=== PATIENT | male | born 1995 | race African-American/Black ===

== ENCOUNTER 2020-05-02 11:35 | Emergency (ER) | payer OTHER ==
[~2020-05-02] VITALS: Ht 167.6 cm; Wt 79.2 kg
[2020-05-02] MEDS ORDERED: TYLENOL (11:42)
[2020-05-02 12:10] LABS: HEMATOCRIT 41.8 % (42.0-52.0); HEMOGLOBIN 14.4 g/dl (13.5-17.5); MEAN CORPUSCULAR HEMOGLOBIN 28.9 pg (27.0-33.0); MEAN CORPUSCULAR HGB CONC 34.4 g/dl (32.0-36.5); MEAN CORPUSCULAR VOLUME 83.9 fl (80.0-96.0); PLATELET COUNT, AUTOMATED 202 10^3/uL (150-450); RED BLOOD COUNT 4.98 10^6/uL (4.30-6.10); WHITE BLOOD COUNT 9.3 10^3/uL (4.0-10.0)
[2020-05-02 12:31] LABS: BLOOD UREA NITROGEN 10 MG/DL (7-18); C REACTIVE PROTEIN QUANTITATIV 0.44 MG/DL (0.00-0.30); CALCIUM LEVEL 9.2 MG/DL (8.5-10.1); CARBON DIOXIDE LEVEL 31 MEQ/L (21-32); CHLORIDE LEVEL 104 MEQ/L (98-107); CREATININE FOR GFR 1.07 MG/DL (0.70-1.30); GLOMERULAR FILTRATION RATE > 60.0 (>60); GLUCOSE, FASTING 82 MG/DL (70-100); POTASSIUM SERUM 3.9 MEQ/L (3.5-5.1); SODIUM LEVEL 138 MEQ/L (136-145)
[2020-05-02 12:43] LABS: ERYTHROCYTE SEDIMENTATION RATE 6 mm/hr (0-15)
--- NOTE | 2020-05-02 12:49 | REP ---
Clinical: Trauma. Technique: AP, lateral, bilateral oblique views right third digit. Findings: Soft tissue swelling at the proximal interphalangeal joint noted. No acute fracture or dislocation. No subcutaneous emphysema or foreign body. Impression: Localized swelling at the third PIP joint. Electronically Signed by Leonides Urrutia MD 05/02/2020 12:40 P
[2020-05-02 12:54] LABS: URIC ACID 4.7 MG/DL (3.5-7.2)
[2020-05-02] MEDS ORDERED: AMPICILLIN SOD/SULBACTAM SOD 3 GM in D5W MINI-BAG PLUS 100 ML IV ONE (13:15)
[2020-05-02] MEDS ORDERED: BACT800T5 PO (14:36)
[2020-05-02 14:55] VITALS: BP 120/74
== END 2020-05-02 15:10 | disposition home or self-care (01) ==
LOC: M ED 11:35
DX: L03.011 Cellulitis of right finger (principal); Z79.899 Other long term (current) drug therapy

== ENCOUNTER 2021-05-15 14:58 | Emergency (ER) | payer OTHER ==
[~2021-05-15] VITALS: Ht 167.6 cm; Wt 79.9 kg
[~2021-05-15 14:58] MED LIST: BACT800T5 PO; TYLENOL
[2021-05-15] MEDS ORDERED: ACETAMINOPHEN 500 MG TAB PO ONE (22:50)
[2021-05-15] MEDS ORDERED: NS 1,000 ML IV ONE (22:55)
--- NOTE | 2021-05-15 23:10 | REPVR ---
PROCEDURE INFORMATION: Exam: XR Chest Exam date and time: 05/15/21 (9:44pm) Age: 25 years old Clinical indication: Cough and dyspnea TECHNIQUE: Imaging protocol: Portable CXR Views: 1 view COMPARISON: No relevant prior studies available FINDINGS: Lungs: Unremarkable. No consolidation. Pleural spaces: Unremarkable. No pleural effusions. No pneumothorax. Heart/Mediastinum: Unremarkable. No cardiomegaly. Bones/joints: Unremarkable. IMPRESSION: No acute findings. Clear lung ascencio. Electronically signed by: Jovanna Menchaca On 05/15/2021 23:10:21 PM
[2021-05-16] VITALS: O2SAT 96
[2021-05-16 00:10] LABS: HEMATOCRIT 41.8 % (42.0-52.0); HEMOGLOBIN 14.7 g/dl (13.5-17.5); MEAN CORPUSCULAR HEMOGLOBIN 28.5 pg (27.0-33.0); MEAN CORPUSCULAR HGB CONC 35.2 g/dl (32.0-36.5); MEAN CORPUSCULAR VOLUME 81.2 fl (80.0-96.0); PLATELET COUNT, AUTOMATED 185 10^3/uL (150-450); RED BLOOD COUNT 5.15 10^6/uL (4.30-6.10)
[2021-05-16 00:29] LABS: ALBUMIN 3.9 GM/DL (3.2-5.2); ALT/SGPT 28 U/L (12-78); BILIRUBIN,DIRECT 0.1 MG/DL (0.0-0.2); BILIRUBIN,TOTAL 0.7 MG/DL (0.2-1.0); BLOOD UREA NITROGEN 7 MG/DL (7-18); CALCIUM LEVEL 8.7 MG/DL (8.5-10.1); CARBON DIOXIDE LEVEL 29 MEQ/L (21-32); CHLORIDE LEVEL 103 MEQ/L (98-107); CK-MB VALUE MASS < 1.0 NG/ML (<3.6); CPK CREATINE PHOSPHOKINASE 146 U/L (39-308); CREATININE FOR GFR 1.09 MG/DL (0.70-1.30); GLOMERULAR FILTRATION RATE > 60.0 (>60); GLUCOSE, FASTING 98 MG/DL (70-100); MB/CK RELATIVE INDEX 0.68 (< OR =4); NT-PRO BNP 27 PG/ML (<125); POTASSIUM SERUM 3.5 MEQ/L (3.5-5.1); SODIUM LEVEL 138 MEQ/L (136-145); THYROXINE (T4) 10.4 UG/DL (4.5-12.0); TOTAL PROTEIN 7.5 GM/DL (6.4-8.2); TROPONIN I < 0.02 NG/ML (< 0.10)
[2021-05-16] MEDS ORDERED: AMOXICILLIN 500 MG CAP PO ONE (00:30)
[2021-05-16] MEDS ORDERED: ISOVUE-370 76% 100ML VIAL As Ordered ONE (00:37)
[2021-05-16 01:23] LABS: ATYPICAL LYMPH 7 % (0-5); EOSINOPHILS 3 % (0-3); LYMPHOCYTES 21 % (16-44); MONOCYTES 11 % (0-5); NEUTROPHILS 58 % (28-66); PLATELET ESTIMATE NORMAL (NORMAL)
[2021-05-16] MEDS ORDERED: TESS100C PO (01:32)
[2021-05-16] MEDS ORDERED: AMOX500C PO (01:32)
--- NOTE | 2021-05-16 03:22 | REPVR ---
PROCEDURE INFORMATION: Exam: CTA Chest With Contrast Exam date and time: 05/16/2021 12:20 AM Age: 25 years old Clinical indication: Pain; Other: Chest; Patient HX: Pos strep, pos flu, diarrhea; Additional info: Chest pain, SOB, elevated dimer, R/O pe TECHNIQUE: Imaging protocol: Computed tomographic angiography of the chest with contrast. 3D rendering (Not supervised by radiologist): MIP and/or 3D reconstructed images were created by the technologist. Radiation optimization: All CT scans at this facility use at least one of these dose optimization techniques: automated exposure control; mA and/or kV adjustment per patient size (includes targeted exams where dose is matched to clinical indication); or iterative reconstruction. Contrast material: ISO; Contrast volume: 75 ml; Contrast route: INTRAVENOUS (IV); COMPARISON: CR PORTABLE CHEST X-RAY 2021-05-15 21:44 FINDINGS: Pulmonary arteries: Normal. No pulmonary emboli. Aorta: Unremarkable. No aortic aneurysm. No aortic dissection. Lungs: Unremarkable. No consolidation. No masses. Pleural spaces: Unremarkable. No pneumothorax. No pleural effusion. Heart: Unremarkable. No cardiomegaly. No pericardial effusion. Lymph nodes: Unremarkable. No enlarged lymph nodes. Bones/joints: Unremarkable. No acute fracture. Soft tissues: Unremarkable. IMPRESSION: No acute findings. Electronically signed by: Zachariah Esteban On 05/16/2021 03:22:00 AM
[2021-05-16 03:33] VITALS: BP 131/76
--- NOTE | 2021-05-16 20:40 | ECGEPIP ---
[facility] - ED Test Date: 2021-05-15 Pat Name: ERIC COLEMAN Department: Room: - Gender: Male [employer] Project Leader: [facility] : 1995 Requested By: JAMES Allen PA-C Order Number: [id number] Reading MD: Dallas Kellogg Measurements Intervals [place] Rate: 81 P: 60 ID: [id number] QRS: 26 QRSD: 66 T: 1 QT: 354 QTc: 411 Interpretive Statements Normal sinus rhythm NONSPECIFIC T WAVE ABNORMALITY(S) NO PRIORS FOR COMPARISON Electronically Signed on 05-16-2021 20:40:20 EDT by Dallas Kellogg
== END 2021-05-16 03:37 | disposition home or self-care (01) ==
LOC: M ED 14:58
DX: J02.0 Streptococcal pharyngitis (principal); R19.7 Diarrhea, unspecified
CPT/HCPCS: 71045; 71275; 80048; 80076; 82550; 82553; 83880; 84436; 84443; 84484; 85025; 85379; 87798; 87880; 93005; 96360; 99284; Q9967

== ENCOUNTER → 2021-11-08 | Outpatient (REF) | payer OTHER ==
[~2021-11-08] MED LIST changes: +AMOX500C PO; +TESS100C PO
[2021-11-08 16:44] LABS: SEMEN APPEARANCE OPAQUE (OPAQUE); SEMEN VISCOSITY LIQUID (LIQUID); SEMEN VOLUME 3.2 ml (2.0-5.0); WBC CONCENTRATION <=1 M/ml (<=1 M/ml)
== END ==
LOC: M LAB REF 16:35
PROVIDERS: ATTEND Physician Assistant
DX: N46.9 Male infertility, unspecified (principal)

== ENCOUNTER → 2021-11-15 | Outpatient (REF) | payer OTHER ==
[2021-11-15 19:16] LABS: SEMEN APPEARANCE OPAQUE (OPAQUE); SEMEN VISCOSITY VISCOUS (LIQUID); SEMEN VOLUME 1.3 ml (2.0-5.0); SEMEN pH 8.5 (7.0-8.0)
[2021-11-15 19:17] LABS: SPERM CONCENTRATION 72.2 M/ml (>=15.0); WBC CONCENTRATION <=1 M/ml (<=1 M/ml)
== END ==
LOC: M LAB REF 18:40
PROVIDERS: ATTEND Physician Assistant
DX: N46.9 Male infertility, unspecified (principal)

== ENCOUNTER → 2021-11-30 | Outpatient (REF) | payer OTHER | LOC: M LAB REF 17:27 | PROVIDERS: ATTEND Physician Assistant | DX: N46.9 Male infertility, unspecified (principal) ==